=== PATIENT | female | born 2000 | race Caucasian/White ===

== ENCOUNTER 2024-04-22 17:25 | Emergency (ER) | payer BC, SELFPAY ==
[2024-04-22 18:25] VITALS: BP 115/75; PULSE 98; RESP 18; TEMP 36.9; O2SAT 100; BMI 40.0
--- NOTE | 2024-04-22 18:46 | ED_ITS ---
Discharge Plan Disposition Patient Disposition: Home, Self-Care Condition: Good Prescriptions Prescriptions: New cefdinir 300 mg capsule 300 mg PO BID Qty: 20 0RF nystatin 100,000 unit/mL suspension 4 ml PO QID 10 Days Qty: 160 0RF Rx Instructions: swish and spit No Action bupropion HCl 150 mg tablet extended release 24 hr 150 mg PO DAILY Referrals Follow up/Referrals: Provider,Referral, MD [Primary Care Provider] - See instructions Activity Restrictions/Add. Instructions Additional Instructions/Restrictions: *Monitor Temp, Over the counter Motrin or Tylenol as directed/as needed Tylenol every 4 hours and Motrin every 6 hours (as long as your family doctor has told you that you can take it) for fever or pain. and straight to ER if unable to lower temp less than 101.0 after medication given *Warm salt water gargles may help to soothe the throat *Throat Lozenges? *Warm fluids like tea with honey may help to soothe the throat? *Sleep elevated *Humidifier/Vaporizer *Take medication as prescribed Use nystatin as prescribed Your throat swab was sent for culture. Those results are typically sent to your primary care. Be sure to follow up in 2-3 days with your family doctor/primary care physician if no improvement so they can review those result and treat if necessary. If you don?t have a primary care doctor, I recommend you get one but in the mean time, you will have to return to a walk in clinic Follow up IMMEDIATELY for new or worsening symptoms or no Noticeable improvement over the next 48-72 hours. 911 for difficulty breathing or swallowing Clinical Impressions Clinical Impression: Pharyngitis Instructions Patient Instructions: Sore Throat, Thrush-Adult Print Language Print Language: Portuguese Discharge ED Provider: Ella Torrez [facility] [place] General Stated complaint: poss strep throat Mode of Arrival: Ambulatory Source of Information: Patient Limitations: No Limitations Time Seen by Provider: 04/22/24 18:46 Description of Symptoms (Recalled from Triage Doc. by RN): PATIENT C/O SORE THROAT AND NIGHT SWEATS X 4 DAYS HEENT Symptoms (Recalled from RN notes): Yes Resp Symptoms (Recalled from RN notes): No Skin Symptoms (Recalled from RN notes): No MS Symptoms (Recalled from RN notes): No Functional Status (Recalled from RN notes): WNL History of Present Illness Provider Complaint: Patient states that she has been having sore throat, headache and feeling hot and sweaty at night for the last 4 days States feels like she does when she has strep throat States she had a few left over antibiotics and she took them until she could get in Related Data Home Medications ?Medication ?Instructions ?Recorded ?Confirmed bupropion HCl 150 mg 24 hr tablet, 150 mg PO DAILY 04/22/24 04/22/24 extended release Previous Rx's ?Medication ?Instructions ?Recorded cefdinir 300 mg capsule 300 mg PO BID #20 caps 04/22/24 nystatin 100,000 unit/mL oral 4 ml PO QID 10 days #160 mL 04/22/24 suspension Allergies Allergy/AdvReac Type Severity Reaction Status Date / Time No Known Allergies Allergy Verified 04/22/24 18:50 Worker's Comp Is this a Worker's Comp case?: No [facility] Disclaimer: The information contained in this section may have been updated after the patient was seen, as this information can be updated by other users. Medical History (Updated 04/22/24 @ 18:53 by Ella Torrez APRN) Depression Anxiety Surgical History (Updated 04/22/24 @ 18:51 by Janene Vaughn RN) History of tonsillectomy History of tympanostomy tube placement Social History Smoking Status: Unknown if ever smoked alcohol intake: never current occupational status: employed Travel in the last 8 weeks: None ROS Obtained: Yes All systems reviewed & no additional complaints except as documented and Yes Systems reviewed as appropriate & no additional complaints except as documented Constitutional Constitutional: Reports system reviewed and no additional complaints, except as documented, Reports as per HPI and Reports headache(s) ENT Ears, Nose, Mouth, and Throat: Reports system reviewed and no additional complaints, except as documented, Reports as per HPI, Reports headache(s) and Reports sore throat Cardiovascular Cardiovascular: Reports system reviewed and no additional complaints, except as documented and Reports as per HPI Respiratory Respiratory: Reports system reviewed and no additional complaints, except as documented and Reports as per HPI Gastrointestinal Gastrointestingal: Reports system reviewed and no additional complaints, except as documented and as per HPI Neurologic Neurologic: Reports headache(s) Physical Exam General General appearance: alert and in no apparent distress ENT ENT exam: Present mucous membranes moist Expanded ENT Exam Throat exam: Present other (small white patchy like areas noted with, pharyngeal erythema noted) Respiratory Respiratory exam: Present normal lung sounds bilaterally; Absent respiratory distress or wheezes Cardiovascular Cardiovascular exam: Present regular rate, normal rhythm and normal heart sounds Abdominal Exam Abdominal exam: Present soft and normal bowel sounds; Absent distention or tenderness Neurological Exam Neurological exam: Present alert, oriented X3 and normal gait Medical Decision Making [place] Inquiry Pt receiving controlled substance: No [place] was queried for this patient: No Vital Signs: 04/22/24 18:25 Temperature 98.4 F Temperature Source Oral Pulse Rate [Left Brachial] 98 H Respiratory Rate 18 Blood Pressure [Left Arm] 115/75 Blood Pressure Mean [Left Arm] 88 Blood Pressure Source [Left Arm] Automatic Cuff Blood Pressure Position [Left Arm] Sitting 02 Sat by Pulse Oximetry 100 Oxygen Delivery Method Room Air Lab Data Lab results reviewed: Yes I reviewed the patient's lab results.
[2024-04-22 18:57] VITALS: BP 115/75; PULSE 98; RESP 18; TEMP 36.9; O2SAT 100
[2024-04-22 18:58] LABS: UTC Strep Screen (Rapid) Negative (Negative)
== END 2024-04-22 18:59 | disposition home or self-care (01) ==
PROVIDERS: Emergency Provider Nurse Practitioner
DX: J02.9 Acute pharyngitis, unspecified (principal); R51.9 Headache, unspecified
CPT/HCPCS: 87880; 99204; 99212; G0463

== ENCOUNTER 2025-05-02 10:46 | Outpatient (CLI) | payer OTHER, SELFPAY ==
[2025-05-05 21:23] LABS: Neisseria gonorrhoeae, NAA Negative (Negative)
== END 2025-05-02 23:59 | disposition home or self-care (01) ==
LOC: LAB.DROPOF 05-05 10:46
PROVIDERS: PCP Obstetrics & Gynecology; Visit Provider Obstetrics & Gynecology
DX: Z20.2 Contact with and (suspected) exposure to infections with a predominantly sexual mode of transmission (principal)
CPT/HCPCS: 87491; 87591